=== PATIENT | female | born 1960 | race Caucasian/White ===

== ENCOUNTER 2018-05-02 11:50 | Emergency (ER) | payer OTHER ==
[~2018-05-02] VITALS: Ht 162.6 cm; Wt 60.0 kg
[2018-05-02] MEDS ORDERED: LORA0.5T2 PO (11:55)
[2018-05-02] MEDS ORDERED: KETOROLAC 30MG/ML VIAL IV STA (12:23)
[2018-05-02] MEDS ORDERED: SODIUM CHLORIDE 0.9% 1,000 ML IV ONE (12:23)
[2018-05-02] MEDS ORDERED: LORAZEPAM 2MG/ML CPJ IV ONE (12:30)
[2018-05-02] MEDS ORDERED: MORPHINE SULFATE 4 MG/ML CPJ (NOT FOR IM USE) IV ONE (13:15)
[2018-05-02] MEDS ORDERED: ONDANSETRON HCL 4MG/2ML INJ IV ONE ×2 (13:15→17:15)
[2018-05-02] MEDS ORDERED: DIPHENHYDRAMINE 50MG/ML VIAL IV ONE (14:45)
[2018-05-02 15:35] LABS: BASOPHILS % 0.6 % (0.0-2.0); EOSINOPHILS % 1.6 % (0.0-5.0); HEMATOCRIT. 32.8 % (36.0-48.0); HEMOGLOBIN. 11.3 g/dL (12.0-16.0); LYMPHOCYTES % 32.2 % (20.0-50.0); MEAN CORPUSCULAR HEMOGLOBIN 35.8 pg (28.0-32.0); MEAN CORPUSCULAR VOLUME 103.6 fL (81.0-99.0); MEAN PLATELET VOLUME 8.5 fl (7.4-10.4); MONOCYTES % 4.4 % (2.0-8.0); NEUTROPHILS % 61.2 % (40.0-76.0); PLATELET 134 x1000/uL (130-400); PROTHROMBIN TIME 9.8 sec (9.1-11.1); RED BLOOD CELL COUNT 3.16 mill/uL (4.2-5.4); RED CELL DISTRIBUTION WIDTH 13.5 % (11.6-14.6)
[2018-05-02 15:36] LABS: CHLORIDE 110 mEq/L (98-107)
[2018-05-02] MEDS ORDERED: LORAZEPAM 2MG/ML CPJ IV SCH (17:15)
[2018-05-02] MEDS ORDERED: SODIUM CHLORIDE 0.9% 500 ML IV SCH (17:15)
[2018-05-03 12:16] LABS: CLARITY URINE CLOUDY (CLEAR); COLOR URINE YELLOW (YELLOW); KETONES URINE TRACE (NEGATIVE); LEUKOCYTE ESTERASE URINE 1+ (NEGATIVE); NITRITE URINE POSITIVE (NEGATIVE); OCCULT BLOOD URINE NEGATIVE (NEGATIVE); PROTEIN URINE NEGATIVE (NEGATIVE); SPECIFIC GRAVITY URINE 1.021 (1.005-1.030); UROBILINOGEN URINE 0.2 E.U./dL (0.2-1.0)
[2018-05-03] MEDS ORDERED: GABAPENTIN 300MG CAPSULE PO SCH (13:30)
[2018-05-03] MEDS ORDERED: LORAZEPAM 1MG TABLET PO ONE ×2 (13:30→22:15)
[2018-05-03] MEDS ORDERED: CEPHALEXIN 250MG CAPSULE PO ONE (13:45)
[2018-05-03] MEDS ORDERED: QUETIAPINE FUMARATE 100MG TABLET PO SCH (23:00)
[2018-05-04 05:01] VITALS: BP 140/80
== END 2018-05-04 05:01 | disposition home or self-care (01) ==
LOC: ER 11:50
DX: F99 Mental disorder, not otherwise specified (principal); R53.1 Weakness; N39.0 Urinary tract infection, site not specified; F43.10 Post-traumatic stress disorder, unspecified
CPT/HCPCS: 36415; 71045; 80053; 83690; 85025; 85610; 87077; 87186; 93005; 96361; 96374; 96375; 96376; 99285; J1200; J2060; J2270; J2405; J7030